=== PATIENT | male | born 1995 ===

== ENCOUNTER 2017-03-05 20:57 | Emergency (ER) | payer OTHER ==
[2017-03-05 21:21] VITALS: BMI 35.5
[2017-03-05 21:22] VITALS: BP 150/100; PULSE 78; RESP 16; TEMP 98.7; O2SAT 97
--- NOTE | 2017-03-05 21:32 | ED PDOC ---
Arrival/HPI - General Historian: Patient - History of Present Illness Time/Duration: Prior to Arrival Symptom Onset: Sudden Symptom Course: Unchanged Quality: Stabbing Severity Level: Mild <Louis Santoro - Last Filed: 03/05/17 21:47> <Carlton Melendez - Last Filed: 03/05/17 22:05> - General Chief Complaint: Lower Extremity Problem/Injury Time Seen by Provider: 03/05/17 21:04 - History of Present Illness Narrative History of Present Illness (Text): 03/05/17 21:47 21yo M with no significant PMHx here for evaluation of left foot puncture wound. Patient was at work when he stepped on a nail through his rubber sole sneaker. This happened at 1930 today. Patient denies any foreign body sensation. States that the nail pierced his skin very superficially. Denies any medical problems. States that he is not up to date on his tetanus immunization. Nail removed immediately, spontaneously. Denies any f/c. No further complaints. No PMD PMHx: Denies PSHx: "Cardiac surgery for heart murmur" NKDA (Louis Santoro) Past Medical History - Provider Review Nursing Documentation Reviewed: Yes - Past History Past History: No Previous - Infectious Disease Hx of Infectious Diseases: None - Psychiatric Hx Substance Use: No <Louis Santoro - Last Filed: 03/05/17 21:47> Family/Social History - Physician Review Nursing Documentation Reviewed: Yes Family/Social History: Unknown Family HX Smoking Status: Never Smoked Hx Alcohol Use: No Hx Substance Use: No <Louis Santoro - Last Filed: 03/05/17 21:47> Allergies/Home Meds <Louis Santoro - Last Filed: 03/05/17 21:47> <Carlton Melendez - Last Filed: 03/05/17 22:05> Allergies/Adverse Reactions: Allergies No Known Allergies Allergy (Verified 03/05/17 21:21) Review of Systems - Physician Review All systems were reviewed & negative as marked: Yes - Review of Systems Constitutional: Normal Eyes: Normal ENT: Normal Respiratory: Normal Cardiovascular: Normal Gastrointestinal: Normal Genitourinary Male: Normal Musculoskeletal: Normal Skin: Other (puncture wound to sole of foot) Neurological: Normal Endocrine: Normal Hemo/Lymphatic: Normal Psychiatric: Normal <Louis Santoro - Last Filed: 03/05/17 21:47> Physical Exam Vital Signs Reviewed: Yes Temperature: Afebrile Blood Pressure: Hypertensive Pulse: Regular Respiratory Rate: Normal Appearance: Positive for: Well-Appearing, Non-Toxic, Comfortable Pain Distress: None Mental Status: Positive for: Alert and Oriented X 3 - Systems Exam Head: Present: Atraumatic, Normocephalic Extroacular Muscles: Present: EOMI Mouth: Present: Moist Mucous Membranes Neck: Present: Normal Range of Motion Abdomen: No: Tenderness, Distention, Peritoneal Signs, Rebound, Guarding Lower Extremity: Present: Other (No tenderness to palpation of sole of foot. Puncture site examined and no apparent foreign body palpated or visible. Little dried blood at site. No erythema. No induration. Distal pulses intact. ) Neurological: Present: GCS=15 Skin: Present: Warm, Normal Color. No: Erythematous, Induration, Hot, Cold, Pale Psychiatric: Present: Alert, Oriented x 3 <Louis Santoro - Last Filed: 03/05/17 21:47> Medical Decision Making <Louis Santoro - Last Filed: 03/05/17 21:47> <Carlton Melendez - Last Filed: 03/05/17 22:05> ED Course and Treatment: 03/05/17 21:54 21yo M with no significant PMHx here for puncture wound to left plantar foot - Tetanus IM - Cleaned area with peroxide - Noted hypertensive - Will prescribe Cipro 500mg PO BID for 3 days - Discussed at length with patient about plan. Patient states that he will follow up with clinic and will return to the ER if he has any problems obtaining adequate follow up. Discussed patient's single reading of elevated BP. Dietary modifications recommended. Patient to establish care with [facility] clinic for management of elevated BP. Patient understands and agrees with plan. All questions and concerns addressed. (Louis Santoro) 03/05/17 22:04 Pt. evaluated with medical or surgical instrument maker.Concur with HPI,treatment plan. (Carlton Melendez) - Medication Orders Current Medication Orders: Discontinued Medications Tetanus/Reduced Diphtheria/Acell Pertussis (Boostrix Vaccine Inj) 0.5 ml IM .ONCE ONE Stop: 03/05/17 21:34 Last Admin: 03/05/17 21:41 Dose: 0.5 ml - PA / [employer] / Resident Statement PEDRO has reviewed & agrees with the documentation as recorded. PEDRO has examined the patient and agrees with the treatment plan. <Louis Santoro - Last Filed: 03/05/17 21:47> - PA / [employer] / Resident Statement PEDRO has reviewed & agrees with the documentation as recorded. PEDRO has examined the patient and agrees with the treatment plan. <Carlton Melendez - Last Filed: 03/05/17 22:05> Disposition/Present on Arrival - Present on Arrival Any Indicators Present on Arrival: No History of DVT/PE: No History of Uncontrolled Diabetes: No Urinary Catheter: No History of Decub. Ulcer: No History Surgical Site Infection Following: None - Disposition Have Diagnosis and Disposition been Completed?: Yes Disposition Time: 21:59 Patient Plan: Discharge <Louis Santoro - Last Filed: 03/05/17 21:47> <Carlton Melendez - Last Filed: 03/05/17 22:05> - Disposition Diagnosis: Puncture wound Disposition: HOME/ ROUTINE Condition: GOOD Discharge Instructions (ExitCare): Puncture Wound (ED) Print Language: FRISIAN Additional Instructions: 1. Follow up with [facility] within 3 days. Call for appointment 2. Take Antibiotics as needed to completion 3. Use OTC Ibuprofen for pain. Keep right elevated whenever possible 3. Return to the ER with any concerning symptoms or if unable to have adequate follow up Prescriptions: Ciprofloxacin [Cipro] 500 mg PO BID #6 tab Referrals: [facility] at [facility] [Outside] - Follow up with primary Forms: [employer] ([place])
[2017-03-05] MEDS ORDERED: TDAP Vaccine 0.5 mL Syr IM ONE (21:33)
== END 2017-03-05 21:51 | disposition home or self-care (01) ==
LOC: ED 20:57
DX: S91.332A Puncture wound without foreign body, left foot, initial encounter (principal); W45.0XXA Nail entering through skin, initial encounter; Y93.89 Activity, other specified; Y92.89 Other specified places as the place of occurrence of the external cause; Y99.8 Other external cause status; Z23 Encounter for immunization